=== PATIENT | male | born 2000 | race Caucasian/White ===

== ENCOUNTER 2021-01-24 11:27 | Emergency (ER) | payer SELFPAY ==
[~2021-01-24] VITALS: Ht 190.5 cm; Wt 142.7 kg
--- NOTE | 2021-01-24 13:06 | RAD ---
INDICATION: Reason: SOA / Spl. Instructions: / History: COMPARISON: None. FINDINGS: Single view of chest obtained. Cardiac silhouette is upper limits of normal in size and likely exaggerated by portable technique. Mild patchy airspace opacities bilaterally. IMPRESSION: * Mild patchy airspace opacities bilaterally which could be infectious in nature. Electronically signed by: Heath Mackey MD (01/24/2021 1:03 PM) [id number]
--- NOTE | 2021-01-24 13:25 | PHYS DOC ---
Past Medical History Additional Past Medical Histor: PSORIASIS Past Surgical History: Other Additional Past Surgical Histo: HYPOSPADIAS Smoking Status: Current Every Day Smoker Alcohol Use: None General Adult EDM: Chief Complaint: SHORTNESS OF BREATH HPI: HPI: Patient is a 20 year old male with no significant medical history who presents to the ED today complaining of cough and nasal congestion, shortness of breath symptoms began a week ago and got worse over the weekend after he worked on a house with mold. Patient denies any fever. Review of Systems: Review of Systems: Constitutional: Denies fever or chills. [] Eyes: Denies change in visual acuity. [] HENT: Reports nasal congestion, denies sore throat. [] Respiratory: Reports cough and shortness of breath. [] Cardiovascular: Denies chest pain or edema. [] GI: Denies abdominal pain, nausea, vomiting, bloody stools or diarrhea. [] : Denies dysuria. [] Musculoskeletal: Denies back pain or joint pain. [] Integument: Denies rash. [] Neurologic: Denies headache, focal weakness or sensory changes. [] Psychiatric: Denies depression or anxiety. [] Heart Score: C/O Chest Pain: N/A Risk Factors: Risk Factors: DM, Current or recent (<one month) smoker, HTN, HLP, family history of CAD, obesity. Risk Scores: Score 0 - 3: 2.5% MACE over next 6 weeks - Discharge Home Score 4 - 6: 20.3% MACE over next 6 weeks - Admit for Clinical Observation Score 7 - 10: 72.7% MACE over next 6 weeks - Early Invasive Strategies Allergies: Allergies: Allergies Coded Allergies Type Severity Reaction Last Updated Verified No Known Drug Allergies 01/24/21 No Physical Exam: PE: Constitutional: Well developed, well nourished, no acute distress, non-toxic appearance. [] HENT: Normocephalic, atraumatic, bilateral external ears normal, oropharynx moist, no oral exudates, nose normal. [] Eyes: PERRLA, EOMI, conjunctiva normal, no discharge. [] Neck: Normal range of motion, no tenderness, supple, no stridor. [] Cardiovascular:Heart rate regular rhythm, no murmur [] Lungs & Thorax: Bilateral breath sounds clear to auscultation [] Abdomen: Bowel sounds normal, soft, no tenderness, no masses, no pulsatile masses. [] Skin: Warm, dry, no erythema, no rash. [] Back: No tenderness, no CVA tenderness. [] Extremities: No tenderness, no cyanosis, no clubbing, ROM intact, no edema. [] Neurologic: Alert and oriented X 3, normal motor function, normal sensory function, no focal deficits noted. [] Psychologic: Affect normal, judgement normal, mood normal. [] Current Patient Data: Vital Signs: Vital Signs Date Time Temp Pulse Resp B/P (MAP) Pulse Ox O2 Delivery O2 Flow Rate FiO2 01/24/21 12:15 98.6 83 15 135/66 99 Room Air 98.6 EKG: EKG: [] Radiology/Procedures: Radiology/Procedures: []PROCEDURE: CHEST AP ONLY INDICATION: Reason: SOA / Spl. Instructions: / History: COMPARISON: None. FINDINGS: Single view of chest obtained. Cardiac silhouette is upper limits of normal in size and likely exaggerated by portable technique. Mild patchy airspace opacities bilaterally. IMPRESSION: * Mild patchy airspace opacities bilaterally which could be infectious in nature. Electronically signed by: Khalida Mackey MD (01/24/2021 1:03 PM) [id number] DICTATED and SIGNED BY: KHALIDA MACKEY MD DATE: 01/24/21 [id number] Course & Med Decision Making: Course & Med Decision Making Pertinent Labs and Imaging studies reviewed. (See chart for details) This is a 20-year-old male patient presenting to the ED today with cough, nasal congestion, shortness of breath, symptoms began a week ago. Chest x-ray noted for mild bilateral infiltrates. Will be swabbed for COVID-19. Discharged on Augmentin, prednisone and Tessalon Perles as well as albuterol inhaler. Follow- up with PCP in 1 week. Provided return precautions Dragon Disclaimer: Millie Disclaimer: This electronic medical record was generated, in whole or in part, using a voice recognition dictation system. Departure Departure Impression: Primary Impression: Bilateral pneumonia Qualified Codes: J18.9 - Pneumonia, unspecified organism Additional Impressions: Upper respiratory infection Qualified Codes: J06.9 - Acute upper respiratory infection, unspecified Person under investigation for COVID-19 Disposition: 01 HOME / SELF CARE / HOMELESS Condition: STABLE Referrals: NO PCP (PCP) follow up with your doctor in 1-2 weeks Patient Instructions: Pneumonia, Adult, Inte-rt-Dyco Additional Instructions: You were evaluated in the emergency room and noted to have pneumonia in your lungs. We tested you for COVID-19, we will call you in the course of this week and let you know your results. Please quarantine yourself until results are back Scripts Benzonatate (TESSALON PERLE) 100 Mg Capsule 1 CAP PO TID, #30 CAP Prov: FLORY PEÑALOZA APRN 01/24/21 Albuterol Sulfate (PROAIR HFA INHALER) 8.5 Gm Hfa.aer.ad 2 PUFF IH PRN Q4-6HRS PRN for wheezing for 21 Days, #1 INHALER 0 Refills Prov: FLORY PEÑALOZA APRN 01/24/21 Prednisone (PREDNISONE) 50 Mg Tablet 1 TAB PO DAILY, #5 TAB Prov: FLORY PEÑALOZA APRN 01/24/21 Amoxicillin/Potassium Clav (AUGMENTIN 875-125 TABLET) 1 Each Tablet 1 TAB PO BID for 10 Days, #20 TAB 0 Refills Prov: FLORY PEÑALOZA APRN 01/24/21 FLORY PEÑALOZA APRN Jan 24, 2021 13:25
[2021-01-24] MEDS ORDERED: AMOX1TAB61 PO (13:29)
[2021-01-24] MEDS ORDERED: PRED50TA PO (13:29)
[2021-01-24] MEDS ORDERED: ALBU2.5V8 IH (13:30)
[2021-01-24] MEDS ORDERED: BENZ100C PO (13:30)
[2021-01-24 13:48] VITALS: BP 125/65
--- NOTE | 2021-01-25 17:09 | NUR ---
IP: Informed pt of Positive COVD results and the need to quarantine for 10 days. Pt verbalized understanding.
== END 2021-01-24 14:00 | disposition home or self-care (01) ==
LOC: ER 11:27
DX: U07.1 COVID-19 (principal); J18.9 Pneumonia, unspecified organism; J06.9 Acute upper respiratory infection, unspecified; F17.200 Nicotine dependence, unspecified, uncomplicated
CPT/HCPCS: 71045; 99284; U0003; U0005